=== PATIENT | male | born 1980 ===

== ENCOUNTER 2017-09-13 12:17 | Day surgery (SDC) | payer MEDICARE, OTHER ==
[~2017-09-13] VITALS: Ht 167.6 cm; Wt 72.1 kg
[2017-09-13 12:48] VITALS: BP 115/72
[2017-09-13] MEDS ORDERED: NONE PER PT (12:53)
[2017-09-13] MEDS ORDERED: MIDAZOLAM 1 MG/ML, 2ML ONE ×2 (12:55)
[2017-09-13] MEDS ORDERED: NALOXONE 1 MG/ML, 2ML ONE (12:55)
[2017-09-13] MEDS ORDERED: FLUMAZENIL 0.1 MG/1 ML, 5ML ONE (12:55)
[2017-09-13] MEDS ORDERED: FENTANYL PF 100 MCG/2ML ONE ×2 (12:56)
[2017-09-13] MEDS ORDERED: LIDOCAINE 1%, 20ML ONE (12:58)
[2017-09-13] MEDS ORDERED: morphine SULFATE 10 MG/ML, 1ML IVPush ONE (14:00)
[2017-09-13] MEDS ORDERED: morphine SULFATE 10 MG/ML, 1ML ONE (14:01)
== END 2017-09-13 15:45 ==
LOC: OUT 12:17
PROVIDERS: ATTEND Physician Assistant
DX: K75.9 Inflammatory liver disease, unspecified (principal); K76.6 Portal hypertension; N18.6 End stage renal disease; Z87.891 Personal history of nicotine dependence
CPT/HCPCS: 47000; 76705; 76942; 88307; 88313; 99156; 99157; J2250; J2270; J3010; J3490; J2310

== ENCOUNTER → 2018-06-05 | Outpatient (CLI) | payer MEDICARE, OTHER ==
[~2018-06-05] MED LIST: NONE PER PT
[2018-06-05 17:26] LABS: BASOPHILS # (AUTO) 0.01 x10^3/uL (0-0.1); BASOPHILS % (AUTO) 0 % (0-1); EOSINOPHILS # (AUTO) 0.09 x10^3/uL (0-0.4); EOSINOPHILS % (AUTO) 2 % (1-7); LYMPHOCYTES # (AUTO) 0.44 x10^3/uL (1-3.4); LYMPHOCYTES % (AUTO) 9 % (22-44); MD NO; MEAN CORPUSCULAR HEMOGLOBIN 30.4 pg (27.5-34.5); MEAN CORPUSCULAR HGB CONC 33.1 g/dL (33.2-36.2); MEAN CORPUSCULAR VOLUME 91.9 fL (81-97); MEAN PLATELET VOLUME 7.7 fL (7.4-10.4); MONOCYTES # (AUTO) 0.31 x10^3/uL (0.2-0.8); MONOCYTES % (AUTO) 6 % (2-9); NEUTROPHILS % (AUTO) 84 % (42-75); PLATELET COUNT 143 x10^3/uL (130-400); RED BLOOD COUNT 3.97 x10^6/uL (4.38-5.82); RED CELL DISTRIBUTION WIDTH 19.2 % (9.4-14.8)
[2018-06-05 17:40] LABS: ALANINE AMINOTRANSFERASE 40 U/L (12-78); ALBUMIN 3.6 g/dL (3.4-5.0); ANION GAP 8 mmol/L (5-15); CALCIUM 8.9 mg/dL (8.5-10.1); CHLORIDE 110 mmol/L (98-107); CREATININE 1.55 mg/dL (0.7-1.3)
[2018-06-05 17:41] LABS: CULTURE INDICATED? YES; MICROSCOPIC INDICATED
[2018-06-05 17:42] LABS: ALKALINE PHOSPHATASE 66 U/L (45-117); BILIRUBIN,TOTAL 0.6 mg/dL (0.2-1.0); CREATINE KINASE, TOTAL 106 U/L (39-308); TOTAL PROTEIN 6.6 g/dL (6.4-8.2)
[2018-06-05 17:46] LABS: CREATININE,URINE RANDOM 78.7 mg/dL
== END | disposition home or self-care (01) ==
LOC: LAB 16:42
PROVIDERS: ATTEND Surgery
DX: Z48.22 Encounter for aftercare following kidney transplant (principal); E83.30 Disorder of phosphorus metabolism, unspecified; K90.9 Intestinal malabsorption, unspecified; N39.0 Urinary tract infection, site not specified; Z94.0 Kidney transplant status
CPT/HCPCS: 36415; 80053; 80197; 81001; 82550; 82570; 83735; 84100; 84156; 85025; 87086

== ENCOUNTER → 2018-06-08 | Outpatient (CLI) | payer MEDICARE, OTHER ==
[2018-06-08 14:13] LABS: BASOPHILS # (AUTO) 0.03 x10^3/uL (0-0.1); BASOPHILS % (AUTO) 1 % (0-1); EOSINOPHILS # (AUTO) 0.09 x10^3/uL (0-0.4); EOSINOPHILS % (AUTO) 2 % (1-7); LYMPHOCYTES # (AUTO) 0.53 x10^3/uL (1-3.4); LYMPHOCYTES % (AUTO) 11 % (22-44); MD NO; MEAN CORPUSCULAR HEMOGLOBIN 29.6 pg (27.5-34.5); MEAN CORPUSCULAR HGB CONC 32.5 g/dL (33.2-36.2); MEAN CORPUSCULAR VOLUME 91.2 fL (81-97); MEAN PLATELET VOLUME 7.3 fL (7.4-10.4); MONOCYTES # (AUTO) 0.23 x10^3/uL (0.2-0.8); MONOCYTES % (AUTO) 5 % (2-9); NEUTROPHILS # (AUTO) 3.87 x10^3/uL (1.8-6.8); NEUTROPHILS % (AUTO) 81 % (42-75); PLATELET COUNT 193 x10^3/uL (130-400); RED BLOOD COUNT 4.31 x10^6/uL (4.38-5.82); RED CELL DISTRIBUTION WIDTH 19.8 % (9.4-14.8)
[2018-06-08 14:20] LABS: MICROSCOPIC AUTO
[2018-06-08 14:22] LABS: CULTURE INDICATED? YES
[2018-06-08 14:29] LABS: ALANINE AMINOTRANSFERASE 37 U/L (12-78); ALBUMIN 3.8 g/dL (3.4-5.0); ANION GAP 10 mmol/L (5-15); CALCIUM 9.2 mg/dL (8.5-10.1); CHLORIDE 108 mmol/L (98-107)
[2018-06-08 14:31] LABS: CREATININE,URINE RANDOM 79.2 mg/dL
[2018-06-08 14:32] LABS: ALKALINE PHOSPHATASE 81 U/L (45-117); BILIRUBIN,TOTAL 0.9 mg/dL (0.2-1.0); CREATINE KINASE, TOTAL 57 U/L (39-308); TOTAL PROTEIN 7.1 g/dL (6.4-8.2)
== END | disposition home or self-care (01) ==
LOC: LAB 13:42
PROVIDERS: ATTEND Family Medicine
DX: Z48.22 Encounter for aftercare following kidney transplant (principal); E83.30 Disorder of phosphorus metabolism, unspecified; K90.9 Intestinal malabsorption, unspecified; N39.0 Urinary tract infection, site not specified; Z94.0 Kidney transplant status
CPT/HCPCS: 36415; 80053; 80197; 81001; 82550; 82570; 83735; 84100; 84156; 85025; 87086

== ENCOUNTER → 2018-06-12 | Outpatient (CLI) | payer MEDICARE, OTHER ==
[2018-06-12 11:04] LABS: CULTURE INDICATED? YES; MICROSCOPIC AUTO
[2018-06-12 11:12] LABS: ALANINE AMINOTRANSFERASE 29 U/L (12-78); ALBUMIN 4.1 g/dL (3.4-5.0); ANION GAP 6 mmol/L (5-15); CALCIUM 9.8 mg/dL (8.5-10.1); CHLORIDE 111 mmol/L (98-107); CREATININE 1.72 mg/dL (0.7-1.3)
[2018-06-12 11:15] LABS: ALKALINE PHOSPHATASE 89 U/L (45-117); BILIRUBIN,TOTAL 0.6 mg/dL (0.2-1.0); CREATINE KINASE, TOTAL 47 U/L (39-308); TOTAL PROTEIN 7.4 g/dL (6.4-8.2)
[2018-06-12 11:17] LABS: BASOPHILS # (AUTO) 0.02 x10^3/uL (0-0.1); BASOPHILS % (AUTO) 0 % (0-1); EOSINOPHILS # (AUTO) 0.09 x10^3/uL (0-0.4); EOSINOPHILS % (AUTO) 1 % (1-7); LYMPHOCYTES % (AUTO) 11 % (22-44); MD SCAN; MEAN CORPUSCULAR VOLUME 90.8 fL (81-97); MEAN PLATELET VOLUME 7.6 fL (7.4-10.4); MONOCYTES # (AUTO) 0.19 x10^3/uL (0.2-0.8); MONOCYTES % (AUTO) 3 % (2-9); NEUTROPHILS # (AUTO) 5.55 x10^3/uL (1.8-6.8); NEUTROPHILS % (AUTO) 85 % (42-75); PLATELET COUNT 190 x10^3/uL (130-400); RED BLOOD COUNT 4.28 x10^6/uL (4.38-5.82); RED CELL DISTRIBUTION WIDTH 19.5 % (9.4-14.8)
== END | disposition home or self-care (01) ==
LOC: LAB 10:29
PROVIDERS: ATTEND Surgery
DX: Z48.22 Encounter for aftercare following kidney transplant (principal); K90.9 Intestinal malabsorption, unspecified; N39.0 Urinary tract infection, site not specified; E83.30 Disorder of phosphorus metabolism, unspecified; Z94.0 Kidney transplant status
CPT/HCPCS: 36415; 80053; 80197; 81001; 82550; 82570; 83735; 84100; 84156; 85025; 87086

== ENCOUNTER → 2018-06-26 | Outpatient (CLI) | payer MEDICARE, OTHER ==
[2018-06-26 07:59] LABS: BASOPHILS # (AUTO) 0.06 x10^3/uL (0-0.1); BASOPHILS % (AUTO) 1 % (0-1); EOSINOPHILS # (AUTO) 0.14 x10^3/uL (0-0.4); EOSINOPHILS % (AUTO) 3 % (1-7); LYMPHOCYTES # (AUTO) 1.05 x10^3/uL (1-3.4); LYMPHOCYTES % (AUTO) 23 % (22-44); MD NO; MEAN CORPUSCULAR HEMOGLOBIN 28.8 pg (27.5-34.5); MEAN CORPUSCULAR HGB CONC 32.8 g/dL (33.2-36.2); MEAN CORPUSCULAR VOLUME 87.8 fL (81-97); MONOCYTES # (AUTO) 0.21 x10^3/uL (0.2-0.8); MONOCYTES % (AUTO) 5 % (2-9); NEUTROPHILS # (AUTO) 3.09 x10^3/uL (1.8-6.8); NEUTROPHILS % (AUTO) 68 % (42-75); PLATELET COUNT 180 x10^3/uL (130-400); RED BLOOD COUNT 4.05 x10^6/uL (4.38-5.82); RED CELL DISTRIBUTION WIDTH 19.2 % (9.4-14.8)
[2018-06-26 08:07] LABS: MICROSCOPIC NOT IND
[2018-06-26 08:08] LABS: CULTURE INDICATED? NO
[2018-06-26 08:12] LABS: ALANINE AMINOTRANSFERASE 20 U/L (12-78); ALBUMIN 3.9 g/dL (3.4-5.0); ANION GAP 8 mmol/L (5-15); CALCIUM 8.9 mg/dL (8.5-10.1); CHLORIDE 109 mmol/L (98-107); CREATININE 1.65 mg/dL (0.7-1.3)
[2018-06-26 08:14] LABS: ALKALINE PHOSPHATASE 100 U/L (45-117); BILIRUBIN,TOTAL 0.4 mg/dL (0.2-1.0); CREATINE KINASE, TOTAL 47 U/L (39-308); TOTAL PROTEIN 7.1 g/dL (6.4-8.2)
[2018-06-26 09:20] LABS: CREATININE,URINE RANDOM 55.6 mg/dL
== END | disposition home or self-care (01) ==
LOC: LAB 07:37
PROVIDERS: ATTEND Surgery
DX: Z48.22 Encounter for aftercare following kidney transplant (principal); E83.30 Disorder of phosphorus metabolism, unspecified; K90.9 Intestinal malabsorption, unspecified; N39.0 Urinary tract infection, site not specified; Z94.0 Kidney transplant status
CPT/HCPCS: 36415; 80053; 80197; 81003; 82550; 82570; 83735; 84100; 84156; 85025

== ENCOUNTER → 2018-07-10 | Outpatient (CLI) | payer MEDICARE, OTHER ==
[2018-07-10 10:18] LABS: BASOPHILS # (AUTO) 0.01 x10^3/uL (0-0.1); BASOPHILS % (AUTO) 0 % (0-1); EOSINOPHILS # (AUTO) 0.04 x10^3/uL (0-0.4); EOSINOPHILS % (AUTO) 1 % (1-7); LYMPHOCYTES # (AUTO) 0.57 x10^3/uL (1-3.4); LYMPHOCYTES % (AUTO) 14 % (22-44); MD NO; MEAN CORPUSCULAR HEMOGLOBIN 28.5 pg (27.5-34.5); MEAN CORPUSCULAR HGB CONC 32.9 g/dL (33.2-36.2); MEAN CORPUSCULAR VOLUME 86.4 fL (81-97); MONOCYTES # (AUTO) 0.17 x10^3/uL (0.2-0.8); MONOCYTES % (AUTO) 4 % (2-9); NEUTROPHILS # (AUTO) 3.18 x10^3/uL (1.8-6.8); NEUTROPHILS % (AUTO) 80 % (42-75); PLATELET COUNT 150 x10^3/uL (130-400); RED CELL DISTRIBUTION WIDTH 19.7 % (9.4-14.8)
[2018-07-10 10:20] LABS: MICROSCOPIC NOT IND
[2018-07-10 10:23] LABS: CULTURE INDICATED? NO
[2018-07-10 10:30] LABS: ALANINE AMINOTRANSFERASE 16 U/L (12-78); ALBUMIN 4.1 g/dL (3.4-5.0); ANION GAP 7 mmol/L (5-15); CALCIUM 8.3 mg/dL (8.5-10.1); CHLORIDE 110 mmol/L (98-107); CREATININE 1.84 mg/dL (0.7-1.3)
[2018-07-10 10:32] LABS: ALKALINE PHOSPHATASE 95 U/L (45-117); BILIRUBIN,TOTAL 0.5 mg/dL (0.2-1.0); CREATINE KINASE, TOTAL 71 U/L (39-308); TOTAL PROTEIN 7.1 g/dL (6.4-8.2)
== END | disposition home or self-care (01) ==
LOC: LAB 09:44
PROVIDERS: ATTEND Surgery
DX: Z48.22 Encounter for aftercare following kidney transplant (principal); E83.30 Disorder of phosphorus metabolism, unspecified; K90.9 Intestinal malabsorption, unspecified; N39.0 Urinary tract infection, site not specified; B33.8 Other specified viral diseases; Z94.0 Kidney transplant status
CPT/HCPCS: 36415; 80053; 80197; 81003; 82550; 82570; 83735; 84100; 84156; 85025

== ENCOUNTER → 2018-07-17 | Outpatient (CLI) | payer MEDICARE, OTHER ==
[2018-07-17 11:21] LABS: BASOPHILS # (AUTO) 0.02 x10^3/uL (0-0.1); BASOPHILS % (AUTO) 1 % (0-1); EOSINOPHILS # (AUTO) 0.05 x10^3/uL (0-0.4); EOSINOPHILS % (AUTO) 1 % (1-7); LYMPHOCYTES % (AUTO) 13 % (22-44); MD NO; MEAN CORPUSCULAR HEMOGLOBIN 28.3 pg (27.5-34.5); MEAN CORPUSCULAR HGB CONC 32.5 g/dL (33.2-36.2); MEAN PLATELET VOLUME 7.5 fL (7.4-10.4); MONOCYTES # (AUTO) 0.16 x10^3/uL (0.2-0.8); MONOCYTES % (AUTO) 4 % (2-9); NEUTROPHILS # (AUTO) 3.08 x10^3/uL (1.8-6.8); NEUTROPHILS % (AUTO) 81 % (42-75); PLATELET COUNT 168 x10^3/uL (130-400); RED BLOOD COUNT 3.73 x10^6/uL (4.38-5.82); RED CELL DISTRIBUTION WIDTH 19.9 % (9.4-14.8)
[2018-07-17 11:31] LABS: MICROSCOPIC NOT IND
[2018-07-17 11:33] LABS: ALANINE AMINOTRANSFERASE 17 U/L (12-78); ALBUMIN 3.9 g/dL (3.4-5.0); ANION GAP 8 mmol/L (5-15); CALCIUM 8.9 mg/dL (8.5-10.1); CHLORIDE 111 mmol/L (98-107); CREATININE 1.97 mg/dL (0.7-1.3); CULTURE INDICATED? NO
[2018-07-17 11:35] LABS: ALKALINE PHOSPHATASE 92 U/L (45-117); BILIRUBIN,TOTAL 0.4 mg/dL (0.2-1.0); CREATINE KINASE, TOTAL 62 U/L (39-308); TOTAL PROTEIN 7.2 g/dL (6.4-8.2)
== END | disposition home or self-care (01) ==
LOC: LAB 10:56
PROVIDERS: ATTEND Surgery
DX: Z48.22 Encounter for aftercare following kidney transplant (principal); E83.30 Disorder of phosphorus metabolism, unspecified; N39.0 Urinary tract infection, site not specified; K90.9 Intestinal malabsorption, unspecified; B33.8 Other specified viral diseases; Z94.0 Kidney transplant status
CPT/HCPCS: 36415; 80053; 80197; 81003; 82550; 82570; 83735; 84100; 84156; 85025

== ENCOUNTER → 2018-07-24 | Outpatient (CLI) | payer MEDICARE, OTHER ==
[2018-07-24 10:21] LABS: BASOPHILS # (AUTO) 0.02 x10^3/uL (0-0.1); BASOPHILS % (AUTO) 0 % (0-1); EOSINOPHILS # (AUTO) 0.05 x10^3/uL (0-0.4); EOSINOPHILS % (AUTO) 1 % (1-7); LYMPHOCYTES # (AUTO) 0.49 x10^3/uL (1-3.4); LYMPHOCYTES % (AUTO) 12 % (22-44); MD NO; MEAN CORPUSCULAR HEMOGLOBIN 28.4 pg (27.5-34.5); MEAN PLATELET VOLUME 7.5 fL (7.4-10.4); MONOCYTES # (AUTO) 0.18 x10^3/uL (0.2-0.8); MONOCYTES % (AUTO) 4 % (2-9); NEUTROPHILS # (AUTO) 3.34 x10^3/uL (1.8-6.8); NEUTROPHILS % (AUTO) 82 % (42-75); PLATELET COUNT 160 x10^3/uL (130-400); RED CELL DISTRIBUTION WIDTH 19.6 % (9.4-14.8)
[2018-07-24 10:33] LABS: ALANINE AMINOTRANSFERASE 15 U/L (12-78); ALBUMIN 4.1 g/dL (3.4-5.0); ANION GAP 6 mmol/L (5-15); CALCIUM 8.6 mg/dL (8.5-10.1); CHLORIDE 108 mmol/L (98-107)
[2018-07-24 10:36] LABS: ALKALINE PHOSPHATASE 87 U/L (45-117); BILIRUBIN,TOTAL 0.8 mg/dL (0.2-1.0); CREATINE KINASE, TOTAL 69 U/L (39-308); CREATININE 1.65 mg/dL (0.7-1.3); MICROSCOPIC NOT IND; TOTAL PROTEIN 7.1 g/dL (6.4-8.2)
[2018-07-24 10:42] LABS: CULTURE INDICATED? NO
[2018-07-24 10:47] LABS: CREATININE,URINE RANDOM 76.5 mg/dL
== END | disposition home or self-care (01) ==
LOC: LAB 09:58
PROVIDERS: ATTEND Surgery
DX: E83.30 Disorder of phosphorus metabolism, unspecified (principal); N39.0 Urinary tract infection, site not specified; K90.9 Intestinal malabsorption, unspecified; Z94.0 Kidney transplant status; Z48.22 Encounter for aftercare following kidney transplant
CPT/HCPCS: 36415; 80053; 80197; 81003; 82550; 82570; 83735; 84100; 84156; 85025

== ENCOUNTER → 2018-07-31 | Outpatient (CLI) | payer MEDICARE, OTHER ==
[2018-07-31 11:37] LABS: BASOPHILS # (AUTO) 0.01 x10^3/uL (0-0.1); BASOPHILS % (AUTO) 0 % (0-1); EOSINOPHILS # (AUTO) 0.05 x10^3/uL (0-0.4); EOSINOPHILS % (AUTO) 1 % (1-7); LYMPHOCYTES # (AUTO) 0.52 x10^3/uL (1-3.4); LYMPHOCYTES % (AUTO) 12 % (22-44); MD NO; MEAN CORPUSCULAR HEMOGLOBIN 29.3 pg (27.5-34.5); MEAN CORPUSCULAR HGB CONC 33.8 g/dL (33.2-36.2); MEAN CORPUSCULAR VOLUME 86.7 fL (81-97); MEAN PLATELET VOLUME 7.5 fL (7.4-10.4); MONOCYTES # (AUTO) 0.13 x10^3/uL (0.2-0.8); MONOCYTES % (AUTO) 3 % (2-9); NEUTROPHILS # (AUTO) 3.84 x10^3/uL (1.8-6.8); NEUTROPHILS % (AUTO) 84 % (42-75); PLATELET COUNT 175 x10^3/uL (130-400); RED CELL DISTRIBUTION WIDTH 19.6 % (9.4-14.8)
[2018-07-31 11:38] LABS: CULTURE INDICATED? NO; MICROSCOPIC NOT IND
[2018-07-31 12:15] LABS: CREATININE,URINE RANDOM 91.5 mg/dL
[2018-07-31 12:20] LABS: ANION GAP 6 mmol/L (5-15); CHLORIDE 110 mmol/L (98-107)
[2018-07-31 12:24] LABS: ALANINE AMINOTRANSFERASE 17 U/L (12-78); ALKALINE PHOSPHATASE 83 U/L (45-117); BILIRUBIN,TOTAL 0.8 mg/dL (0.2-1.0); CREATINE KINASE, TOTAL 75 U/L (39-308); CREATININE 1.69 mg/dL (0.7-1.3); TOTAL PROTEIN 6.9 g/dL (6.4-8.2)
== END | disposition home or self-care (01) ==
LOC: LAB 11:07
PROVIDERS: ATTEND Surgery
DX: Z48.22 Encounter for aftercare following kidney transplant (principal); N39.0 Urinary tract infection, site not specified; B33.8 Other specified viral diseases; K90.9 Intestinal malabsorption, unspecified; E83.30 Disorder of phosphorus metabolism, unspecified; Z94.0 Kidney transplant status
CPT/HCPCS: 36415; 80053; 80197; 81003; 82550; 82570; 83735; 84100; 84156; 85025

== ENCOUNTER → 2018-08-14 | Outpatient (CLI) | payer MEDICARE, OTHER ==
[2018-08-14 11:37] LABS: MICROSCOPIC NOT IND
[2018-08-14 11:40] LABS: BASOPHILS # (AUTO) 0.01 x10^3/uL (0-0.1); BASOPHILS % (AUTO) 0 % (0-1); EOSINOPHILS # (AUTO) 0.08 x10^3/uL (0-0.4); EOSINOPHILS % (AUTO) 2 % (1-7); LYMPHOCYTES % (AUTO) 12 % (22-44); MD NO; MEAN CORPUSCULAR HGB CONC 33.6 g/dL (33.2-36.2); MEAN CORPUSCULAR VOLUME 86.4 fL (81-97); MEAN PLATELET VOLUME 8.2 fL (7.4-10.4); MONOCYTES # (AUTO) 0.18 x10^3/uL (0.2-0.8); MONOCYTES % (AUTO) 4 % (2-9); NEUTROPHILS # (AUTO) 3.37 x10^3/uL (1.8-6.8); NEUTROPHILS % (AUTO) 81 % (42-75); PLATELET COUNT 166 x10^3/uL (130-400); RED BLOOD COUNT 3.53 x10^6/uL (4.38-5.82); RED CELL DISTRIBUTION WIDTH 18.9 % (9.4-14.8)
[2018-08-14 11:42] LABS: CULTURE INDICATED? NO
[2018-08-14 11:49] LABS: ALANINE AMINOTRANSFERASE 17 U/L (12-78); ALBUMIN 4.3 g/dL (3.4-5.0); ANION GAP 8 mmol/L (5-15); CALCIUM 9.3 mg/dL (8.5-10.1); CHLORIDE 107 mmol/L (98-107); CREATININE 1.83 mg/dL (0.7-1.3)
[2018-08-14 11:51] LABS: ALKALINE PHOSPHATASE 81 U/L (45-117); BILIRUBIN,TOTAL 0.8 mg/dL (0.2-1.0); CREATINE KINASE, TOTAL 77 U/L (39-308); TOTAL PROTEIN 7.1 g/dL (6.4-8.2)
== END | disposition home or self-care (01) ==
LOC: LAB 10:58
PROVIDERS: ATTEND Surgery
DX: Z48.22 Encounter for aftercare following kidney transplant (principal); N39.0 Urinary tract infection, site not specified; K90.9 Intestinal malabsorption, unspecified; B33.8 Other specified viral diseases; E83.30 Disorder of phosphorus metabolism, unspecified; Z94.0 Kidney transplant status
CPT/HCPCS: 36415; 80053; 80197; 81003; 82550; 82570; 83735; 84100; 84156; 85025

== ENCOUNTER → 2018-08-21 | Outpatient (CLI) | payer MEDICARE, OTHER ==
[2018-08-21 10:23] LABS: BASOPHILS # (AUTO) 0.02 x10^3/uL (0-0.1); BASOPHILS % (AUTO) 0 % (0-1); EOSINOPHILS # (AUTO) 0.04 x10^3/uL (0-0.4); EOSINOPHILS % (AUTO) 1 % (1-7); LYMPHOCYTES # (AUTO) 0.38 x10^3/uL (1-3.4); LYMPHOCYTES % (AUTO) 9 % (22-44); MD NO; MEAN CORPUSCULAR HEMOGLOBIN 28.8 pg (27.5-34.5); MEAN CORPUSCULAR HGB CONC 32.9 g/dL (33.2-36.2); MEAN CORPUSCULAR VOLUME 87.6 fL (81-97); MEAN PLATELET VOLUME 7.8 fL (7.4-10.4); MONOCYTES # (AUTO) 0.25 x10^3/uL (0.2-0.8); MONOCYTES % (AUTO) 6 % (2-9); NEUTROPHILS # (AUTO) 3.32 x10^3/uL (1.8-6.8); NEUTROPHILS % (AUTO) 83 % (42-75); PLATELET COUNT 156 x10^3/uL (130-400); RED BLOOD COUNT 3.51 x10^6/uL (4.38-5.82); RED CELL DISTRIBUTION WIDTH 18.6 % (9.4-14.8)
[2018-08-21 10:30] LABS: MICROSCOPIC NOT IND
[2018-08-21 10:31] LABS: CULTURE INDICATED? NO
[2018-08-21 10:35] LABS: ALANINE AMINOTRANSFERASE 22 U/L (12-78); ALBUMIN 4.2 g/dL (3.4-5.0); ANION GAP 6 mmol/L (5-15); CALCIUM 9.3 mg/dL (8.5-10.1); CHLORIDE 111 mmol/L (98-107); CREATININE 1.56 mg/dL (0.7-1.3)
[2018-08-21 10:37] LABS: ALKALINE PHOSPHATASE 85 U/L (45-117); BILIRUBIN,TOTAL 0.7 mg/dL (0.2-1.0); CREATINE KINASE, TOTAL 100 U/L (39-308); TOTAL PROTEIN 7.1 g/dL (6.4-8.2)
[2018-08-21 10:42] LABS: CREATININE,URINE RANDOM 73.3 mg/dL
== END | disposition home or self-care (01) ==
LOC: LAB 09:59
PROVIDERS: ATTEND Surgery
DX: Z48.22 Encounter for aftercare following kidney transplant (principal); E83.30 Disorder of phosphorus metabolism, unspecified; K90.9 Intestinal malabsorption, unspecified; N39.0 Urinary tract infection, site not specified; B33.8 Other specified viral diseases; Z94.0 Kidney transplant status
CPT/HCPCS: 36415; 80053; 80197; 81003; 82550; 82570; 83735; 84100; 84156; 85025

== ENCOUNTER → 2018-08-28 | Outpatient (CLI) | payer MEDICARE, OTHER ==
[2018-08-28 09:11] LABS: MICROSCOPIC NOT IND
[2018-08-28 09:14] LABS: BASOPHILS # (AUTO) 0.01 x10^3/uL (0-0.1); BASOPHILS % (AUTO) 0 % (0-1); EOSINOPHILS # (AUTO) 0.04 x10^3/uL (0-0.4); EOSINOPHILS % (AUTO) 1 % (1-7); LYMPHOCYTES # (AUTO) 0.45 x10^3/uL (1-3.4); LYMPHOCYTES % (AUTO) 14 % (22-44); MD NO; MEAN CORPUSCULAR HEMOGLOBIN 28.6 pg (27.5-34.5); MEAN CORPUSCULAR HGB CONC 32.6 g/dL (33.2-36.2); MEAN CORPUSCULAR VOLUME 87.8 fL (81-97); MEAN PLATELET VOLUME 7.7 fL (7.4-10.4); MONOCYTES # (AUTO) 0.18 x10^3/uL (0.2-0.8); MONOCYTES % (AUTO) 6 % (2-9); NEUTROPHILS # (AUTO) 2.45 x10^3/uL (1.8-6.8); NEUTROPHILS % (AUTO) 78 % (42-75); PLATELET COUNT 154 x10^3/uL (130-400); RED BLOOD COUNT 3.71 x10^6/uL (4.38-5.82); RED CELL DISTRIBUTION WIDTH 17.8 % (9.4-14.8)
[2018-08-28 09:18] LABS: INTERNATIONAL NORMALIZED RATIO 1.15 (0.93-1.1); PROTHROMBIN TIME 12.1 Seconds (9.6-11.5)
[2018-08-28 09:20] LABS: ALBUMIN 4.1 g/dL (3.4-5.0); ANION GAP 6 mmol/L (5-15); CALCIUM 9.2 mg/dL (8.5-10.1); CHLORIDE 112 mmol/L (98-107)
[2018-08-28 09:23] LABS: CREATININE,URINE RANDOM 93.3 mg/dL
[2018-08-28 09:24] LABS: ALANINE AMINOTRANSFERASE 22 U/L (12-78); ALKALINE PHOSPHATASE 87 U/L (45-117); BILIRUBIN,TOTAL 0.7 mg/dL (0.2-1.0); CREATINE KINASE, TOTAL 56 U/L (39-308); CREATININE 1.62 mg/dL (0.7-1.3); TOTAL PROTEIN 7.1 g/dL (6.4-8.2)
[2018-08-28 09:25] LABS: CULTURE INDICATED? NO
== END | disposition home or self-care (01) ==
LOC: LAB 08:39
PROVIDERS: ATTEND Surgery
DX: Z48.22 Encounter for aftercare following kidney transplant (principal); E83.30 Disorder of phosphorus metabolism, unspecified; N39.0 Urinary tract infection, site not specified; B33.8 Other specified viral diseases; Z94.0 Kidney transplant status
CPT/HCPCS: 36415; 80053; 80197; 81003; 82550; 82570; 83735; 84100; 84156; 85025; 85610

== ENCOUNTER 2018-09-18 09:46 | Outpatient (CLI) | payer MEDICARE, OTHER ==
[2018-09-18 10:19] LABS: BASOPHILS # (AUTO) 0.01 x10^3/uL (0-0.1); BASOPHILS % (AUTO) 0 % (0-1); EOSINOPHILS # (AUTO) 0.04 x10^3/uL (0-0.4); EOSINOPHILS % (AUTO) 1 % (1-7); LYMPHOCYTES % (AUTO) 13 % (22-44); MD NO; MEAN CORPUSCULAR HGB CONC 32.9 g/dL (33.2-36.2); MEAN CORPUSCULAR VOLUME 88.1 fL (81-97); MONOCYTES # (AUTO) 0.32 x10^3/uL (0.2-0.8); MONOCYTES % (AUTO) 7 % (2-9); NEUTROPHILS # (AUTO) 3.67 x10^3/uL (1.8-6.8); NEUTROPHILS % (AUTO) 79 % (42-75); PLATELET COUNT 191 x10^3/uL (130-400); RED BLOOD COUNT 3.88 x10^6/uL (4.38-5.82); RED CELL DISTRIBUTION WIDTH 14.9 % (9.4-14.8)
[2018-09-18 10:26] LABS: MICROSCOPIC NOT IND
[2018-09-18 10:30] LABS: ALBUMIN 4.3 g/dL (3.4-5.0); ANION GAP 7 mmol/L (5-15); CALCIUM 9.1 mg/dL (8.5-10.1); CHLORIDE 110 mmol/L (98-107)
[2018-09-18 10:31] LABS: CULTURE INDICATED? NO
[2018-09-18 10:33] LABS: ALANINE AMINOTRANSFERASE 19 U/L (12-78); ALKALINE PHOSPHATASE 105 U/L (45-117); BILIRUBIN,TOTAL 0.6 mg/dL (0.2-1.0); CREATINE KINASE, TOTAL 73 U/L (39-308); CREATININE 1.35 mg/dL (0.7-1.3); TOTAL PROTEIN 7.3 g/dL (6.4-8.2)
== END 2018-09-18 23:59 | disposition home or self-care (01) ==
LOC: LAB 09:46
PROVIDERS: ATTEND Surgery
DX: Z48.22 Encounter for aftercare following kidney transplant (principal); N39.0 Urinary tract infection, site not specified; E83.30 Disorder of phosphorus metabolism, unspecified; K90.9 Intestinal malabsorption, unspecified; B33.8 Other specified viral diseases; Z94.0 Kidney transplant status
CPT/HCPCS: 36415; 80053; 80197; 81003; 82550; 82570; 83735; 84100; 84156; 85025

== ENCOUNTER → 2018-10-02 | Outpatient (CLI) | payer MEDICARE, OTHER ==
[2018-10-02 10:27] LABS: BASOPHILS # (AUTO) 0.02 x10^3/uL (0-0.1); BASOPHILS % (AUTO) 0 % (0-1); EOSINOPHILS # (AUTO) 0.11 x10^3/uL (0-0.4); EOSINOPHILS % (AUTO) 2 % (1-7); LYMPHOCYTES # (AUTO) 0.55 x10^3/uL (1-3.4); LYMPHOCYTES % (AUTO) 12 % (22-44); MD NO; MEAN CORPUSCULAR HEMOGLOBIN 29.5 pg (27.5-34.5); MEAN CORPUSCULAR HGB CONC 33.5 g/dL (33.2-36.2); MEAN CORPUSCULAR VOLUME 88.1 fL (81-97); MEAN PLATELET VOLUME 8.2 fL (7.4-10.4); MONOCYTES # (AUTO) 0.27 x10^3/uL (0.2-0.8); MONOCYTES % (AUTO) 6 % (2-9); NEUTROPHILS # (AUTO) 3.75 x10^3/uL (1.8-6.8); NEUTROPHILS % (AUTO) 80 % (42-75); PLATELET COUNT 170 x10^3/uL (130-400); RED BLOOD COUNT 4.04 x10^6/uL (4.38-5.82); RED CELL DISTRIBUTION WIDTH 14.7 % (9.4-14.8)
[2018-10-02 10:30] LABS: MICROSCOPIC AUTO
[2018-10-02 10:31] LABS: CULTURE INDICATED? NO
[2018-10-02 10:37] LABS: ALANINE AMINOTRANSFERASE 22 U/L (12-78); CALCIUM 9.2 mg/dL (8.5-10.1); CHLORIDE 112 mmol/L (98-107); CREATININE 1.28 mg/dL (0.7-1.3)
[2018-10-02 10:39] LABS: ALKALINE PHOSPHATASE 100 U/L (45-117); BILIRUBIN,TOTAL 0.5 mg/dL (0.2-1.0); CREATINE KINASE, TOTAL 91 U/L (39-308); TOTAL PROTEIN 7.2 g/dL (6.4-8.2)
[2018-10-02 10:43] LABS: ANION GAP 5 mmol/L (5-15)
== END | disposition home or self-care (01) ==
LOC: LAB 09:50
PROVIDERS: ATTEND Surgery
DX: Z48.22 Encounter for aftercare following kidney transplant (principal); E83.30 Disorder of phosphorus metabolism, unspecified; K90.9 Intestinal malabsorption, unspecified; N39.0 Urinary tract infection, site not specified; B33.8 Other specified viral diseases; Z94.0 Kidney transplant status
CPT/HCPCS: 36415; 80053; 80197; 81001; 82550; 82570; 83735; 84100; 84156; 85025

== ENCOUNTER → 2018-10-09 | Outpatient (CLI) | payer MEDICARE, OTHER | END | disposition home or self-care (01) | LOC: CFH 10:03 | PROVIDERS: ATTEND Physician Assistant | DX: K74.60 Unspecified cirrhosis of liver (principal); K80.20 Calculus of gallbladder without cholecystitis without obstruction | CPT/HCPCS: 76705 ==

== ENCOUNTER → 2018-10-17 | Outpatient (CLI) | payer MEDICARE, OTHER ==
[2018-10-17 11:48] LABS: BASOPHILS # (AUTO) 0.02 x10^3/uL (0-0.1); BASOPHILS % (AUTO) 0 % (0-1); EOSINOPHILS # (AUTO) 0.05 x10^3/uL (0-0.4); EOSINOPHILS % (AUTO) 1 % (1-7); LYMPHOCYTES # (AUTO) 0.72 x10^3/uL (1-3.4); LYMPHOCYTES % (AUTO) 16 % (22-44); MD NO; MEAN CORPUSCULAR HEMOGLOBIN 29.6 pg (27.5-34.5); MEAN CORPUSCULAR HGB CONC 33.5 g/dL (33.2-36.2); MEAN CORPUSCULAR VOLUME 88.5 fL (81-97); MEAN PLATELET VOLUME 7.9 fL (7.4-10.4); MONOCYTES # (AUTO) 0.27 x10^3/uL (0.2-0.8); MONOCYTES % (AUTO) 6 % (2-9); NEUTROPHILS # (AUTO) 3.55 x10^3/uL (1.8-6.8); NEUTROPHILS % (AUTO) 77 % (42-75); PLATELET COUNT 168 x10^3/uL (130-400); RED CELL DISTRIBUTION WIDTH 13.7 % (9.4-14.8)
[2018-10-17 11:50] LABS: MICROSCOPIC NOT IND
[2018-10-17 11:55] LABS: CULTURE INDICATED? NO
[2018-10-17 11:56] LABS: ALANINE AMINOTRANSFERASE 27 U/L (12-78); ALBUMIN 4.1 g/dL (3.4-5.0); ANION GAP 6 mmol/L (5-15); CALCIUM 9.3 mg/dL (8.5-10.1); CHLORIDE 111 mmol/L (98-107)
[2018-10-17 11:59] LABS: ALKALINE PHOSPHATASE 107 U/L (45-117); BILIRUBIN,TOTAL 0.6 mg/dL (0.2-1.0); CREATINE KINASE, TOTAL 93 U/L (39-308); TOTAL PROTEIN 7.1 g/dL (6.4-8.2)
== END | disposition home or self-care (01) ==
LOC: LAB 11:11
PROVIDERS: ATTEND Surgery
DX: Z48.22 Encounter for aftercare following kidney transplant (principal); N39.0 Urinary tract infection, site not specified; K90.9 Intestinal malabsorption, unspecified; B33.8 Other specified viral diseases; E83.30 Disorder of phosphorus metabolism, unspecified; Z94.0 Kidney transplant status
CPT/HCPCS: 36415; 80053; 80197; 81003; 82550; 82570; 83735; 84100; 84156; 85025

== ENCOUNTER → 2018-10-30 | Outpatient (CLI) | payer MEDICARE, OTHER ==
[2018-10-30 10:26] LABS: MICROSCOPIC NOT IND
[2018-10-30 10:29] LABS: CULTURE INDICATED? NO
[2018-10-30 10:31] LABS: BASOPHILS # (AUTO) 0.02 x10^3/uL (0-0.1); BASOPHILS % (AUTO) 0 % (0-1); EOSINOPHILS # (AUTO) 0.05 x10^3/uL (0-0.4); EOSINOPHILS % (AUTO) 1 % (1-7); LYMPHOCYTES # (AUTO) 0.53 x10^3/uL (1-3.4); LYMPHOCYTES % (AUTO) 10 % (22-44); MD NO; MEAN CORPUSCULAR HEMOGLOBIN 28.5 pg (27.5-34.5); MEAN CORPUSCULAR HGB CONC 32.4 g/dL (33.2-36.2); MEAN CORPUSCULAR VOLUME 87.9 fL (81-97); MEAN PLATELET VOLUME 8.4 fL (7.4-10.4); MONOCYTES # (AUTO) 0.27 x10^3/uL (0.2-0.8); MONOCYTES % (AUTO) 5 % (2-9); NEUTROPHILS # (AUTO) 4.26 x10^3/uL (1.8-6.8); NEUTROPHILS % (AUTO) 83 % (42-75); PLATELET COUNT 158 x10^3/uL (130-400); RED BLOOD COUNT 4.18 x10^6/uL (4.38-5.82); RED CELL DISTRIBUTION WIDTH 14.2 % (9.4-14.8)
[2018-10-30 10:39] LABS: ALANINE AMINOTRANSFERASE 21 U/L (12-78); ALBUMIN 4.2 g/dL (3.4-5.0); CALCIUM 9.1 mg/dL (8.5-10.1); CHLORIDE 110 mmol/L (98-107); CREATININE 1.21 mg/dL (0.7-1.3)
[2018-10-30 10:40] LABS: CREATININE,URINE RANDOM 99.9 mg/dL
[2018-10-30 10:41] LABS: ALKALINE PHOSPHATASE 101 U/L (45-117); BILIRUBIN,TOTAL 0.5 mg/dL (0.2-1.0); CREATINE KINASE, TOTAL 95 U/L (39-308)
[2018-10-30 10:48] LABS: ANION GAP 7 mmol/L (5-15)
== END | disposition home or self-care (01) ==
LOC: LAB 09:56
PROVIDERS: ATTEND Surgery
DX: E83.30 Disorder of phosphorus metabolism, unspecified (principal); K90.9 Intestinal malabsorption, unspecified; N39.0 Urinary tract infection, site not specified; B33.8 Other specified viral diseases; Z94.0 Kidney transplant status; Z48.22 Encounter for aftercare following kidney transplant
CPT/HCPCS: 36415; 80053; 80197; 81003; 82550; 82570; 83735; 84100; 84156; 85025

== ENCOUNTER → 2018-11-14 | Outpatient (CLI) | payer MEDICARE, OTHER ==
[2018-11-14 09:58] LABS: MICROSCOPIC NOT IND
[2018-11-14 10:00] LABS: BASOPHILS # (AUTO) 0.02 x10^3/uL (0-0.1); BASOPHILS % (AUTO) 0 % (0-1); EOSINOPHILS # (AUTO) 0.04 x10^3/uL (0-0.4); EOSINOPHILS % (AUTO) 1 % (1-7); LYMPHOCYTES # (AUTO) 0.56 x10^3/uL (1-3.4); LYMPHOCYTES % (AUTO) 12 % (22-44); MD NO; MEAN CORPUSCULAR HGB CONC 32.6 g/dL (33.2-36.2); MEAN CORPUSCULAR VOLUME 86.1 fL (81-97); MEAN PLATELET VOLUME 8.2 fL (7.4-10.4); MONOCYTES % (AUTO) 4 % (2-9); NEUTROPHILS # (AUTO) 3.92 x10^3/uL (1.8-6.8); NEUTROPHILS % (AUTO) 83 % (42-75); PLATELET COUNT 171 x10^3/uL (130-400); RED BLOOD COUNT 4.55 x10^6/uL (4.38-5.82); RED CELL DISTRIBUTION WIDTH 13.6 % (9.4-14.8)
[2018-11-14 10:04] LABS: CULTURE INDICATED? NO
[2018-11-14 10:10] LABS: ALANINE AMINOTRANSFERASE 23 U/L (12-78); ALBUMIN 4.1 g/dL (3.4-5.0); ANION GAP 3 mmol/L (5-15); CHLORIDE 108 mmol/L (98-107); CREATININE 1.39 mg/dL (0.7-1.3)
[2018-11-14 10:12] LABS: ALKALINE PHOSPHATASE 109 U/L (45-117); BILIRUBIN,TOTAL 0.6 mg/dL (0.2-1.0); CREATINE KINASE, TOTAL 99 U/L (39-308); TOTAL PROTEIN 7.2 g/dL (6.4-8.2)
== END | disposition home or self-care (01) ==
LOC: LAB 09:28
PROVIDERS: ATTEND Surgery
DX: Z48.22 Encounter for aftercare following kidney transplant (principal); E83.30 Disorder of phosphorus metabolism, unspecified; K90.9 Intestinal malabsorption, unspecified; N39.0 Urinary tract infection, site not specified; B33.8 Other specified viral diseases; Z94.0 Kidney transplant status
CPT/HCPCS: 36415; 80053; 80197; 81003; 82550; 82570; 83735; 84100; 84156; 85025

== ENCOUNTER → 2018-12-05 | Outpatient (CLI) | payer MEDICARE ==
[2018-12-05 10:23] LABS: BASOPHILS # (AUTO) 0.02 x10^3/uL (0-0.1); BASOPHILS % (AUTO) 0 % (0-1); EOSINOPHILS # (AUTO) 0.04 x10^3/uL (0-0.4); EOSINOPHILS % (AUTO) 1 % (1-7); LYMPHOCYTES # (AUTO) 0.68 x10^3/uL (1-3.4); LYMPHOCYTES % (AUTO) 10 % (22-44); MD NO; MEAN CORPUSCULAR HEMOGLOBIN 28.7 pg (27.5-34.5); MEAN CORPUSCULAR HGB CONC 33.3 g/dL (33.2-36.2); MEAN CORPUSCULAR VOLUME 86.2 fL (81-97); MEAN PLATELET VOLUME 8.2 fL (7.4-10.4); MONOCYTES # (AUTO) 0.37 x10^3/uL (0.2-0.8); MONOCYTES % (AUTO) 6 % (2-9); NEUTROPHILS # (AUTO) 5.44 x10^3/uL (1.8-6.8); NEUTROPHILS % (AUTO) 83 % (42-75); PLATELET COUNT 173 x10^3/uL (130-400); RED BLOOD COUNT 4.45 x10^6/uL (4.38-5.82); RED CELL DISTRIBUTION WIDTH 14.7 % (9.4-14.8)
[2018-12-05 10:25] LABS: MICROSCOPIC NOT IND
[2018-12-05 10:27] LABS: CULTURE INDICATED? NO
[2018-12-05 10:29] LABS: ALANINE AMINOTRANSFERASE 24 U/L (12-78); ALBUMIN 4.1 g/dL (3.4-5.0); ANION GAP 3 mmol/L (5-15); CALCIUM 8.9 mg/dL (8.5-10.1); CHLORIDE 111 mmol/L (98-107); CREATININE 1.27 mg/dL (0.7-1.3)
[2018-12-05 10:34] LABS: ALKALINE PHOSPHATASE 91 U/L (45-117); BILIRUBIN,TOTAL 0.6 mg/dL (0.2-1.0); CREATINE KINASE, TOTAL 65 U/L (39-308); TOTAL PROTEIN 6.7 g/dL (6.4-8.2)
== END | disposition home or self-care (01) ==
LOC: LAB 09:51
PROVIDERS: ATTEND Surgery
DX: Z48.22 Encounter for aftercare following kidney transplant (principal); E83.30 Disorder of phosphorus metabolism, unspecified; K90.9 Intestinal malabsorption, unspecified; N39.0 Urinary tract infection, site not specified; B33.8 Other specified viral diseases; Z94.0 Kidney transplant status
CPT/HCPCS: 36415; 80053; 80197; 81003; 82550; 82570; 83735; 84100; 84156; 85025

== ENCOUNTER → 2019-01-15 | Outpatient (CLI) | payer MEDICARE ==
[2019-01-15 09:20] LABS: MICROSCOPIC NOT IND
[2019-01-15 09:31] LABS: BASOPHILS # (AUTO) 0.02 x10^3/uL (0-0.1); BASOPHILS % (AUTO) 0 % (0-1); EOSINOPHILS # (AUTO) 0.04 x10^3/uL (0-0.4); EOSINOPHILS % (AUTO) 1 % (1-7); LYMPHOCYTES # (AUTO) 0.59 x10^3/uL (1-3.4); LYMPHOCYTES % (AUTO) 13 % (22-44); MD NO; MEAN CORPUSCULAR HEMOGLOBIN 27.9 pg (27.5-34.5); MEAN CORPUSCULAR HGB CONC 32.2 g/dL (33.2-36.2); MEAN CORPUSCULAR VOLUME 86.7 fL (81-97); MEAN PLATELET VOLUME 7.6 fL (7.4-10.4); MONOCYTES # (AUTO) 0.45 x10^3/uL (0.2-0.8); MONOCYTES % (AUTO) 10 % (2-9); NEUTROPHILS # (AUTO) 3.43 x10^3/uL (1.8-6.8); NEUTROPHILS % (AUTO) 76 % (42-75); PLATELET COUNT 172 x10^3/uL (130-400); RED BLOOD COUNT 4.72 x10^6/uL (4.38-5.82); RED CELL DISTRIBUTION WIDTH 15.6 % (9.4-14.8)
[2019-01-15 09:37] LABS: ALANINE AMINOTRANSFERASE 27 U/L (12-78); ALBUMIN 4.1 g/dL (3.4-5.0); ANION GAP 6 mmol/L (5-15); CALCIUM 9.1 mg/dL (8.5-10.1); CHLORIDE 109 mmol/L (98-107); CREATININE 1.32 mg/dL (0.7-1.3)
[2019-01-15 09:39] LABS: ALKALINE PHOSPHATASE 104 U/L (45-117); BILIRUBIN,TOTAL 0.6 mg/dL (0.2-1.0); TOTAL PROTEIN 7.3 g/dL (6.4-8.2)
== END | disposition home or self-care (01) ==
LOC: LAB 08:56
PROVIDERS: ATTEND Surgery
DX: Z48.22 Encounter for aftercare following kidney transplant (principal); K90.9 Intestinal malabsorption, unspecified; N39.0 Urinary tract infection, site not specified; E83.30 Disorder of phosphorus metabolism, unspecified; B33.8 Other specified viral diseases; Z94.0 Kidney transplant status
CPT/HCPCS: 36415; 80053; 80197; 81003; 82570; 83735; 84100; 84156; 85025

== ENCOUNTER 2019-03-12 09:34 | Outpatient (CLI) | payer MEDICARE | END 2019-03-12 23:59 | disposition home or self-care (01) | LOC: LAB 09:34 | PROVIDERS: ATTEND Surgery | DX: Z48.22 Encounter for aftercare following kidney transplant (principal); Z94.0 Kidney transplant status; E83.30 Disorder of phosphorus metabolism, unspecified; K90.9 Intestinal malabsorption, unspecified; N39.0 Urinary tract infection, site not specified; B33.8 Other specified viral diseases | CPT/HCPCS: 36415; 80053; 80197; 81003; 82570; 83735; 84100; 84156; 85025 ==

== ENCOUNTER 2019-06-25 09:51 | Outpatient (CLI) ==
[2019-06-25 10:27] LABS: BASOPHILS # (AUTO) 0.01 x10^3/uL (0-0.1); BASOPHILS % (AUTO) 0 % (0-1); EOSINOPHILS # (AUTO) 0.05 x10^3/uL (0-0.4); EOSINOPHILS % (AUTO) 1 % (1-7); LYMPHOCYTES # (AUTO) 0.75 x10^3/uL (1-3.4); LYMPHOCYTES % (AUTO) 15 % (22-44); MD NO; MEAN CORPUSCULAR HEMOGLOBIN 28.5 pg (27.5-34.5); MEAN CORPUSCULAR HGB CONC 32.9 g/dL (33.2-36.2); MEAN CORPUSCULAR VOLUME 86.7 fL (81-97); MEAN PLATELET VOLUME 7.8 fL (7.4-10.4); MONOCYTES # (AUTO) 0.27 x10^3/uL (0.2-0.8); MONOCYTES % (AUTO) 5 % (2-9); NEUTROPHILS # (AUTO) 4.06 x10^3/uL (1.8-6.8); NEUTROPHILS % (AUTO) 79 % (42-75); PLATELET COUNT 168 x10^3/uL (130-400); RED BLOOD COUNT 4.45 x10^6/uL (4.38-5.82); RED CELL DISTRIBUTION WIDTH 15.6 % (9.4-14.8)
[2019-06-25 10:36] LABS: ALANINE AMINOTRANSFERASE 29 U/L (12-78); ALBUMIN 4.1 g/dL (3.4-5.0); ANION GAP 8 mmol/L (5-15); CALCIUM 9.4 mg/dL (8.5-10.1); CHLORIDE 111 mmol/L (98-107); CREATININE 1.31 mg/dL (0.7-1.3)
[2019-06-25 10:38] LABS: ALKALINE PHOSPHATASE 77 U/L (45-117); BILIRUBIN,TOTAL 0.6 mg/dL (0.2-1.0); TOTAL PROTEIN 7.2 g/dL (6.4-8.2)
[2019-06-25 10:42] LABS: MICROSCOPIC NOT IND
== END 2019-06-25 23:59 | disposition home or self-care (01) ==
LOC: LAB 09:51
PROVIDERS: ATTEND Surgery
DX: E83.30 Disorder of phosphorus metabolism, unspecified (principal); K90.9 Intestinal malabsorption, unspecified; N39.0 Urinary tract infection, site not specified; B33.8 Other specified viral diseases; Z94.0 Kidney transplant status; Z48.22 Encounter for aftercare following kidney transplant
CPT/HCPCS: 36415; 80053; 80197; 81003; 82570; 83735; 84100; 84156; 85025

== ENCOUNTER → 2019-10-03 | Outpatient (CLI) | payer MEDICARE, MEDICAID ==
[2019-10-03 10:08] LABS: MICROSCOPIC NOT IND
[2019-10-03 10:10] LABS: BASOPHILS # (AUTO) 0.03 x10^3/uL (0-0.1); BASOPHILS % (AUTO) 0 % (0-1); EOSINOPHILS # (AUTO) 0.06 x10^3/uL (0-0.4); EOSINOPHILS % (AUTO) 1 % (1-7); LYMPHOCYTES # (AUTO) 1.03 x10^3/uL (1-3.4); LYMPHOCYTES % (AUTO) 15 % (22-44); MD NO; MEAN CORPUSCULAR HEMOGLOBIN 28.9 pg (27.5-34.5); MEAN CORPUSCULAR HGB CONC 33.1 g/dL (33.2-36.2); MEAN CORPUSCULAR VOLUME 87.1 fL (81-97); MEAN PLATELET VOLUME 8.1 fL (7.4-10.4); MONOCYTES # (AUTO) 0.43 x10^3/uL (0.2-0.8); MONOCYTES % (AUTO) 6 % (2-9); NEUTROPHILS # (AUTO) 5.46 x10^3/uL (1.8-6.8); NEUTROPHILS % (AUTO) 78 % (42-75); PLATELET COUNT 165 x10^3/uL (130-400); RED BLOOD COUNT 4.92 x10^6/uL (4.38-5.82); RED CELL DISTRIBUTION WIDTH 14.7 % (9.4-14.8)
[2019-10-03 10:17] LABS: ALANINE AMINOTRANSFERASE 22 U/L (12-78); ALBUMIN 4.1 g/dL (3.4-5.0); ANION GAP 8 mmol/L (5-15); CHLORIDE 110 mmol/L (98-107); CREATININE 1.41 mg/dL (0.7-1.3)
[2019-10-03 10:19] LABS: ALKALINE PHOSPHATASE 84 U/L (45-117); BILIRUBIN,TOTAL 0.6 mg/dL (0.2-1.0); TOTAL PROTEIN 7.6 g/dL (6.4-8.2)
== END | disposition home or self-care (01) ==
LOC: LAB 09:34
PROVIDERS: ATTEND Surgery
DX: Z48.22 Encounter for aftercare following kidney transplant (principal); E83.30 Disorder of phosphorus metabolism, unspecified; K90.9 Intestinal malabsorption, unspecified; N39.0 Urinary tract infection, site not specified; B33.8 Other specified viral diseases; Z94.0 Kidney transplant status
CPT/HCPCS: 36415; 80053; 80197; 81003; 82570; 83735; 84100; 84156; 85025

== ENCOUNTER 2019-11-22 11:58 | Outpatient (CLI) | payer MEDICARE, MEDICAID ==
[2019-11-22 13:48] LABS: BASOPHILS # (AUTO) 0.03 x10^3/uL (0-0.1); BASOPHILS % (AUTO) 0 % (0-1); EOSINOPHILS # (AUTO) 0.15 x10^3/uL (0-0.4); EOSINOPHILS % (AUTO) 2 % (1-7); LYMPHOCYTES # (AUTO) 2.04 x10^3/uL (1-3.4); LYMPHOCYTES % (AUTO) 26 % (22-44); MD NO; MEAN CORPUSCULAR HEMOGLOBIN 28.5 pg (27.5-34.5); MEAN CORPUSCULAR HGB CONC 32.6 g/dL (33.2-36.2); MEAN CORPUSCULAR VOLUME 87.4 fL (81-97); MEAN PLATELET VOLUME 9.8 fL (7.4-10.4); MONOCYTES # (AUTO) 0.48 x10^3/uL (0.2-0.8); MONOCYTES % (AUTO) 6 % (2-9); NEUTROPHILS # (AUTO) 5.27 x10^3/uL (1.8-6.8); NEUTROPHILS % (AUTO) 66 % (42-75); PLATELET COUNT 197 x10^3/uL (130-400); RED BLOOD COUNT 5.25 x10^6/uL (4.38-5.82); RED CELL DISTRIBUTION WIDTH 15.4 % (9.4-14.8)
[2019-11-22 13:53] LABS: MICROSCOPIC NOT IND
[2019-11-22 13:57] LABS: CULTURE INDICATED? NO
[2019-11-22 14:11] LABS: ALANINE AMINOTRANSFERASE 20 U/L (12-78); ALBUMIN 4.2 g/dL (3.4-5.0); ANION GAP 8 mmol/L (5-15); CALCIUM 9.4 mg/dL (8.5-10.1); CHLORIDE 111 mmol/L (98-107); CREATININE 1.35 mg/dL (0.7-1.3)
[2019-11-22 14:13] LABS: ALKALINE PHOSPHATASE 80 U/L (45-117); BILIRUBIN,TOTAL 0.3 mg/dL (0.2-1.0); TOTAL PROTEIN 7.2 g/dL (6.4-8.2)
== END 2019-11-22 23:59 | disposition home or self-care (01) ==
LOC: LAB 11:58
PROVIDERS: ATTEND Family Medicine
DX: D50.8 Other iron deficiency anemias (principal); T86.10 Unspecified complication of kidney transplant; E09.69 Drug or chemical induced diabetes mellitus with other specified complication; N25.89 Other disorders resulting from impaired renal tubular function; Z94.1 Heart transplant status
CPT/HCPCS: 36415; 80053; 80197; 81003; 82570; 83735; 84100; 84156; 85025

== ENCOUNTER → 2020-07-25 | Outpatient (CLI) | payer MEDICARE, MEDICAID ==
[~2020-07-25] MED LIST changes: +ASPI81TA45 PO; +MV-M1TAB16 PO; +MYCO500T3 PO; +TACR1CAP5 PO
[2020-07-25 12:32] LABS: BASOPHILS % (AUTO) 0 % (0-1); EOSINOPHILS % (AUTO) 0 % (1-7); LYMPHOCYTES % (AUTO) 11 % (22-44); MEAN CORPUSCULAR HEMOGLOBIN 29.1 pg (27.5-34.5); MEAN CORPUSCULAR HGB CONC 33.6 g/dL (33.2-36.2); MEAN PLATELET VOLUME 8.3 fL (7.4-10.4); MONOCYTES % (AUTO) 6 % (2-9); NEUTROPHILS % (AUTO) 83 % (42-75); PLATELET COUNT 202 x10^3/uL (130-400); RED BLOOD COUNT 4.82 x10^6/uL (4.38-5.82); RED CELL DISTRIBUTION WIDTH 14.3 % (9.4-14.8)
[2020-07-25 12:40] LABS: MD NO
[2020-07-25 12:43] LABS: ALBUMIN 4.4 g/dL (3.4-5.0); ANION GAP 3 mmol/L (5-15); CALCIUM 9.4 mg/dL (8.5-10.1); CHLORIDE 109 mmol/L (98-107)
[2020-07-25 12:46] LABS: ALANINE AMINOTRANSFERASE 21 U/L (12-78); ALKALINE PHOSPHATASE 95 U/L (45-117); CREATININE 1.37 mg/dL (0.7-1.3); TOTAL PROTEIN 7.7 g/dL (6.4-8.2)
[2020-07-25 12:51] LABS: MICROSCOPIC NOT IND
== END | disposition home or self-care (01) ==
LOC: LAB 11:45
PROVIDERS: ATTEND Surgery
DX: N39.0 Urinary tract infection, site not specified (principal); B33.8 Other specified viral diseases; K90.9 Intestinal malabsorption, unspecified; E83.30 Disorder of phosphorus metabolism, unspecified; Z48.22 Encounter for aftercare following kidney transplant; Z94.0 Kidney transplant status
CPT/HCPCS: 36415; 80053; 80197; 81003; 82570; 83735; 84100; 84156; 85025; 87799

== ENCOUNTER 2020-07-26 16:38 | Emergency (ER) | payer MEDICARE, MEDICAID ==
[~2020-07-26] VITALS: Ht 167.6 cm; Wt 65.0 kg
--- NOTE | 2020-07-26 18:16 | NUR ---
Pt on monitor. Pt is immunocompromised with h/o kidney transplant. Plan of care discussed.
--- NOTE | 2020-07-26 19:03 | NUR ---
BEDSIDE REPORT RECEIVED FROM EILEEN CHILDS
[2020-07-26 19:05] VITALS: BP 123/86
--- NOTE | 2020-07-26 19:13 | NUR ---
Patient given discharge instructions and they have confirmed that they understand the instructions. Patient ambulatory with steady gait.
== END 2020-07-26 19:17 | disposition home or self-care (01) ==
LOC: ED 18:30
DX: R06.02 Shortness of breath (principal); Z20.822 Contact with and (suspected) exposure to COVID-19; R05 Cough; R06.00 Dyspnea, unspecified
CPT/HCPCS: 71045; 87635; 93005; 99285

== ENCOUNTER → 2020-10-07 | Outpatient (CLI) | payer MEDICARE, MEDICAID ==
[2020-10-07 13:39] LABS: MICROSCOPIC NOT IND
[2020-10-07 13:41] LABS: BASOPHILS % (AUTO) 1 % (0-1); EOSINOPHILS % (AUTO) 1 % (1-7); LYMPHOCYTES % (AUTO) 16 % (22-44); MEAN CORPUSCULAR HEMOGLOBIN 28.8 pg (27.5-34.5); MEAN CORPUSCULAR HGB CONC 33.6 g/dL (33.2-36.2); MEAN PLATELET VOLUME 8.3 fL (7.4-10.4); MONOCYTES % (AUTO) 6 % (2-9); NEUTROPHILS % (AUTO) 77 % (42-75); PLATELET COUNT 189 x10^3/uL (130-400); RED BLOOD COUNT 4.98 x10^6/uL (4.38-5.82); RED CELL DISTRIBUTION WIDTH 14.4 % (9.4-14.8)
[2020-10-07 13:48] LABS: ALANINE AMINOTRANSFERASE 20 U/L (12-78); ANION GAP 6 mmol/L (5-15); CALCIUM 8.9 mg/dL (8.5-10.1); CHLORIDE 107 mmol/L (98-107); CREATININE 1.32 mg/dL (0.7-1.3)
[2020-10-07 13:50] LABS: ALKALINE PHOSPHATASE 102 U/L (45-117); BILIRUBIN,TOTAL 0.6 mg/dL (0.2-1.0); TOTAL PROTEIN 7.5 g/dL (6.4-8.2)
[2020-10-07 13:58] LABS: MD NO
== END | disposition home or self-care (01) ==
LOC: LAB 12:59
PROVIDERS: ATTEND Surgery
DX: N39.0 Urinary tract infection, site not specified (principal); E83.30 Disorder of phosphorus metabolism, unspecified; K90.9 Intestinal malabsorption, unspecified; B33.8 Other specified viral diseases; Z48.22 Encounter for aftercare following kidney transplant; Z94.0 Kidney transplant status
CPT/HCPCS: 80053; 80197; 81003; 82570; 83735; 84100; 84156; 85025